=== PATIENT | male | born 1960 | race Caucasian/White ===

== ENCOUNTER 2016-05-24 18:01 | Emergency (ER) | payer SELFPAY ==
[2016-05-24 20:00] LABS: #Basophils 0.1 thou/uL (0.0-0.2); #Eosinphils 0.2 thou/uL (0.0-0.7); #Lymphocytes 4.6 thou/uL (1.20-3.40); #Neutrophils 4.9 thou/uL (1.40-6.50); %Basophils 0.9 % (0.0-1.0); %Eosinophils 2.3 % (0.0-10.0); %Monocytes 9.6 % (0.0-10.0); Hematocrit 46.5 % (42.0-52.0); Mean Platelet Volume 7.2 fL (7.4-10.4); Red Blood Cell (RBC) Count 5.02 mill/uL (4.70-6.10); White Blood Cell (WBC) Count 10.9 thou/uL (4.8-10.8)
[2016-05-24 20:16] LABS: ALT (SGPT) 16 U/L (0-55); AST (SGOT) 19 U/L (5-34); Alkaline Phosphatase 71 U/L (40-150); Anion Gap 13 mmol/L (10-20); BUN (Urea Nitrogen) 14 mg/dL (8.4-25.7); Bilirubin, Total 0.6 mg/dL (0.2-1.2); Calc. Creatinine Clearance 0 mL/min (70-130); Carbon Dioxide 26 mmol/L (22-29); Chloride 102 mmol/L (98-107); Estimated GFR-MDRD Greater than 90; Globulin 3.3 g/dL (2.4-3.5); Protein, Total 7.7 g/dL (6.0-8.3)
[2016-05-24] MEDS ORDERED: traMADol HCl 50 MG TAB ONE (20:34)
[2016-05-24] MEDS ORDERED: Acetaminophen 500 MG TAB ONE (20:34)
--- NOTE | 2016-05-24 21:32 | ERRECORD ---
[facility] EMERGENCY RECORD HPI EXTREMITY (20:22 WMEI) CHIEF COMPLAINT: Patient presents for evaluation of numbness, Patient presents for evaluation of numbness tingling both upper extr. from shoulder to finger tips. HISTORIAN: History provided by patient, denies injury present for 2 wks worse at night. MECHANISM OF INJURY: Unknown mechanism. LOCATION: Symptoms are localized, both upper extr. TIME COURSE: Gradual onset of symptoms, 2, weeks ago. ASSOCIATED WITH: No associated distal injury, No associated fever, Associated with numbness, constant, Associated with tingling, constant. EXACERBATED BY: Patient's condition exacerbated by nothing. RELIEVED BY: Patient's condition relieved by nothing. ROS (20:24 WMEI) CONSTITUTIONAL: Historian denies chills, denies fever. EYES: Historian denies eye pain, denies eye discharge. ENT: Historian denies otalgia, denies rhinorrhea, denies sore throat. CARDIOVASCULAR: Historian denies chest pain, no radiation. RESPIRATORY: Historian denies cough, denies shortness of breath. GI: Historian denies abdominal pain, denies nausea, denies vomiting. GENITOURINARY MALE: Historian denies dysuria, denies urinary urgency. MUSCULOSKELETAL: Historian denies injury, denies joint redness, reports joint stiffness, denies joint swelling. SKIN: Historian denies skin changes, denies skin lesions. NEUROLOGIC: Historian denies confusion, denies dizziness, denies mental status changes, denies paralysis, reports paresthesias. PSYCHIATRIC: Historian denies emotional lability, denies mood changes. PAST MEDICAL HISTORY MEDICAL HISTORY: No past medical history. (18:14 [facility]) Notes: hasn't been to doctor for 30 yrs. (20:26 WMEI) MALE SURGICAL HISTORY: Patient has no surgical history. (18:14 [facility]) PSYCHIATRIC HISTORY: No previous psychiatric history. (18:14 IG) SOCIAL HISTORY: Patient drinks every day, more than 5 drinks per day, Patient denies drug use, Patient currently uses tobacco, smokes cigarettes, Patient smokes 1.5 packs per day. (18:14 [facility]) KNOWN ALLERGIES No Known Drug Allergies &a-1R&a+25V*p+0X*g9352Y*c202B*c15G*c2P*p-0X&a-25V&a+1R Name: Tristan Bauer : 1960 M56 MedRec: [id number] AcctNum: [id number] Prepared: Aleena May 25, 2016 06:09 by Interface Page 1 of 3 pMD [facility] EMERGENCY RECORD CURRENT MEDICATIONS (18:15 [facility]) None VITAL SIGNS VITAL SIGNS: BP: 138/80, Pulse: 84, Resp: 20 (Non-Labored), Pain: 8, O2 sat: 97 on Room Air, Time: 05/24/2016 18:13. (18:13 [facility]) Temp: 97.9 (Oral), Time: 05/24/2016 18:21. (18:21 [facility]) BP: 125/87, Pulse: 82, Resp: 18, O2 sat: 98 on RA, Time: 05/24/2016 19:16. (19:16 [facility]) PHYSICAL EXAM (20:25 WMEI) CONSTITUTIONAL: Vital signs reviewed, Patient appears non toxic, Patient alert and oriented to person, place and time. HEAD: Head exam included findings of head atraumatic, normocephalic. EYES: Conjunctiva normal, Sclera normal. ENT: Ear exam normal, Nose exam normal, Pharynx exam normal. NECK: Neck exam included findings of normal range of motion, Trachea midline. RESPIRATORY CHEST: Breath sounds clear, Chest exam included findings of chest movement symmetrical. CARDIOVASCULAR: Cardiovascular exam included findings of heart rate regular rate and rhythm, Heart sounds normal. ABDOMEN MALE: Abdominal exam included findings of abdomen nontender, Liver normal, no distension. UPPER EXTREMITY: Upper extremity exam included findings of inspection normal, range of motion normal, Radial pulse normal, Ulnar pulse normal, capillary refill less than 2 seconds, distal motor intact, distal sensory intact, no cyanosis, no clubbing, no edema. LOWER EXTREMITY: Lower extremity exam included findings of inspection abnormal, Range of motion, Motor strength. NEURO: [place] coma scale 15, Neuro exam findings include patient oriented to person, place and time, Speech normal, Gait normal. SKIN: Skin exam included findings of skin warm, dry, and normal in color. LYMPHATIC: Lymphatic exam normal. PSYCHIATRIC: Psychiatric exam included findings of patient oriented to person place and time, Normal affect, Judgment normal, Insight normal. MEDICATION ADMINISTRATION SUMMARY Drug Name: traMADol, Dose Ordered: 50 mg, Route: Oral, Status: Given, Time: 20:35 05/24/2016, Drug Name: acetaminophen oral, Dose Ordered: 1000 mg, Route: Oral, Status: Given, Time: 20:35 05/24/2016, Detailed record available in Medication Service section. &a-1R&a+25V*p+0X*z7741X*c202B*c15G*c2P*p-0X&a-25V&a+1R Name: Tristan Bauer : 1960 M56 MedRec: [id number] AcctNum: [id number] Prepared: Aleena May 25, 2016 06:09 by Interface Page 2 of 3 pMD [facility] EMERGENCY RECORD PROBLEM LIST No recorded problems DIAGNOSIS (20:33 WMEI) FINAL: PRIMARY: parestesias. PRESCRIPTION (20:32 WMEI) traMADol: TABLET : 50 mg : ORAL : Quantity: 1 Unit: tab(s) Route: ORAL Schedule: 2 times a day (before meals) Dispense: 30 Unit: tab(s) May substitute. Refills: No Refills . NOTES: No refills. DISPOSITION PATIENT: Disposition Type: Discharge, Disposition: *Discharge Home. (20:33 WMEI) Patient left the department. (20:44 BMAD) Aragon: EROS=YAQUELIN Kwon, Marc ALLEN=YAQUELIN Boateng, Celi STATON=YAQUELIN Bey, Nick WMEI=DO Turner William &a-1R&a+25V*p+0X*[id number]*c202B*c15G*c2P*p-0X&a-25V&a+1R Name: Tristan Bauer : 1960 M56 MedRec: [id number] AcctNum: [id number] Prepared: Aleena May 25, 2016 06:09 by Interface Page 3 of 3 pMD MTDD
--- NOTE | 2016-05-24 21:35 | PICIS ---
[facility] EMERGENCY RECORD TRIAGE (18:12 JHIG) TRIAGE NOTES: Pt states that for the past couple of weeks he has had intermittent numbness and tingling in his hands. States "it is like when your feet fall asleep" Pt states the only time it is better is when he stands with his arms down by his side. (18:12 JHIG) PATIENT: NAME: Tristan Bauer, AGE: 56, GENDER: male, : Thu1960, TIME OF GREET: Sat May 24, 2016 18:01, PREFERRED LANGUAGE: Yoruba, ETHNICITY: Not or , ECODE BILLING MAP: [facility], SSN: [id number], Zip Code: [address], KG WEIGHT: 81.65, PHONE: , , , PERSON ID: [id number], PAYMENT: SJ[employer] Self Pay, PCP: none. (18:12 JHIG) COMPLAINT: hand numbness/tingling. (18:12 JHIG) ADMISSION: URGENCY: 3 Urgent, ADMISSION SOURCE: Home, TRANSPORT: [facility], BED: TRIAGE. (18:12 JHIG) PAIN: Patient complains of pain described as, numb, tingling, on a scale 0-10 patient rates pain as 8, Pain is intermittent. (18:14 JHIG) IMMUNIZATIONS: Flu vaccine not up to date, Tetanus not up to date, Pneumococcal vaccine not up to date. (18:14 J[facility]IG) SIRS SCORING: Heart Rate 55-109 (0), Temp range 96.8-101.1 (0), respiratory rate 12-24 (0), Mental Status altered: no (0), Total SIRS Score 0, Infection or Suspected Infection: No. (18:14 J[facility]IG) TRIAGE SCREENING: Patient denies suicidal ideation, Patient denies presence of domestic violence. (18:14 JHIG) PROVIDERS: TRIAGE NURSE: Nick Bey RN. (18:12 JHIG) VITAL SIGNS: BP 138/80, Pulse 84, Resp 20, (Non-Labored), Pain 8, O2 Sat 97, on Room Air, Time 05/24/2016 18:13. (18:13 JHIG) KNOWN ALLERGIES No Known Drug Allergies CURRENT MEDICATIONS (18:15 IG) None VITAL SIGNS VITAL SIGNS: BP: 138/80, Pulse: 84, Resp: 20 (Non-Labored), Pain: 8, O2 sat: 97 on Room Air, Time: 05/24/2016 18:13. (18:13 J[facility]) Temp: 97.9 (Oral), Time: 05/24/2016 18:21. (18:21 IG) BP: 125/87, Pulse: 82, Resp: 18, O2 sat: 98 on RA, Time: 05/24/2016 19:16. (19:16 [facility] NURSING ASSESSMENT: EXTREMITY UPPER (18:15 [facility]) CONSTITUTIONAL: Complex assessment performed, Patient arrives ambulatory, Gait steady, History obtained from patient, Patient appears, uncomfortable, Patient cooperative, Patient alert, Oriented to person, place and time, Skin warm, Skin dry, Skin normal in color, Mucous membranes pink, Mucous membranes moist, Patient is &a-1R&a+25V*p+0X*i9141M*c202B*c15G*c2P*p-0X&a-25V&a+1R Name: Tristan Bauer : 1960 M56 MedRec: [id number] AcctNum: [id number] Prepared: Aleena May 25, 2016 06:15 by Interface Page 1 of 6 pMD [facility] EMERGENCY RECORD well-groomed, Patient complains of hand numbness and tingling, Pt states that for the past couple of weeks he has had intermittent numbness and tingling in his hands. States "it is like when your feet fall asleep" Pt states the only time it is better is when he stands with his arms down by his side. PAIN: numb pain, tingling pain, to bilateral hands, on a scale 0-10 patient rates pain as 8. LEFT UPPER EXTREMITY: Left upper extremity assessment findings include capillary refill less than 2 seconds, Skin color normal to hand, Skin temperature to hand warm, Distal sensation intact, Muscle tone normal, muscle strength 5, non-pitting edema present. RIGHT UPPER EXTREMITY: Right upper extremity assessment findings include capillary refill less than 2 seconds, Skin color normal to hand, Skin temperature to hand warm, Distal sensation intact, Muscle tone normal, muscle strength 5, non-pitting edema present. SAFETY: Side rails up, Cart/Stretcher in lowest position, Family at bedside, Call light within reach, Hospital ID band on. NURSING ASSESSMENT: NEURO (19:46 BMAD) GCS: (6) Obeying command:, (5) Orientated:, (4) Spontaneous eye opening., Result: 15. NIHSS: CVA assessment findings: Level of consciousness: alert, keenly responsive (0), Questions: answers both questions correctly (0), Commands: performs both tasks correctly (0), Best gaze: normal (0), Visual: no visual loss (0), Facial palsy: normal symmetrical movement (0), Motor Left Arm: no drift, arm stays 90/45 degrees for full 10 seconds (0), Motor Right Arm: no drift, arm stays 90/45 degrees for full 10 seconds (0), Motor left leg: no drift, leg stays at 30 degrees for full five seconds (0), Motor right leg: no drift, leg stays at 30 degrees for full five seconds (0), Limb ataxia absent (0), Sensory: normal, no sensory loss (0), Best language: no aphasia; normal (0), Dysarthria: normal (0), Extinction and Inattention: normal (0), Total score 0. NURSING PROCEDURE: DISCHARGE NOTE (20:43 BMAD) DISCHARGE: Patient discharged to home, ambulating without assistance, family driving, accompanied by //partner, Summary of Care printed/ provided, Patient requested and was provided an electronic copy of Discharge Instructions, Transition record given to patient, Discharge instructions given to patient, Simple or moderate discharge teaching performed, by Marc JAMISON, Prescriptions given and instructions on side effects given, Name of prescription(s) given: Tramadol, Above person(s) verbalized understanding of discharge instructions and follow-up care, Patient discharged by, Dr. Turner. BELONGINGS: Belongings and valuables with patient at time of discharge include:, Belongings remain with patient, Valuables remain with patient. &a-1R&a+25V*p+0X*h2559T*c202B*c15G*c2P*p-0X&a-25V&a+1R Name: Tristan Bauer : 1960 M56 MedRec: [id number] AcctNum: [id number] Prepared: Aleena May 25, 2016 06:15 by Interface Page 2 of 6 pMD [facility] EMERGENCY RECORD NURSING PROCEDURE: NURSE NOTES (19:16 [facility]) NURSES NOTES: Notes: pt ambulated to rm 4 without incident. pt is cooperative, his visitor is very verbally aggressive, upset that she and the pt arrived the same time as 4 other people and 2 were emergent and were seen before the pt was. triage process explained to pt/visitor without violating any HIPPA violations ie disclosing names/dx with pt voicing "thank you" and the visitor saying, "I don't care. that doesn't matter and you need to get him taken care of." pt/visitor advised that the MD will be with them as soon as he can. VITAL SIGNS: BP: 125, / 87, Pulse: 82, Resp: 18, O2 sat: 98, on: RA. ORDER DETAILS Order Name: CBC with Differential, Status: Active, Time: 19:43 05/24/2016, User: [facility], - Ordered for: DO Turner William, - Entered by: DO Turner William - Sat May 24, 2016 19:43, - Quantity: 1, Order Name: Comprehensive Metabolic Panel, Status: Active, Time: 19:43 05/24/2016, User: KRISTEN, - Ordered for: DO Turner William, - Entered by: DO Turner William - Sat May 24, 2016 19:43, - Quantity: 1, Order Name: XR Chest Pa & Lat STANDARD, Status: Active, Time: 19:43 05/24/2016, User: KRISTEN, - Ordered for: DO Turner William, - Entered by: DO Turner William - Sat May 24, 2016 19:43, - Quantity: 1. MEDICATION ADMINISTRATION SUMMARY Drug Name: traMADol, Dose Ordered: 50 mg, Route: Oral, Status: Given, Time: 20:35 05/24/2016, Drug Name: acetaminophen oral, Dose Ordered: 1000 mg, Route: Oral, Status: Given, Time: 20:35 05/24/2016, Detailed record available in Medication Service section. MEDICATION SERVICE (20:35 WMEI) acetaminophen oral: Order: acetaminophen oral (acetaminophen) - Dose: 1000 mg : Oral Schedule: Now Ordered by: Kory Turner DO Entered by: Kory Turner DO [facility] May 24, 2016 20:32 , Acknowledged by: Marc Kwon RN [facility] May 24, 2016 20:33 Documented as given by: Marc Kwon RN [facility] May 24, 2016 20:35 Patient, Medication, Dose, Route and Time verified prior to administration. Amount given: 1000mg, Site: Medication administered P.O., Correct &a-1R&a+25V*p+0X*a6757X*c202B*c15G*c2P*p-0X&a-25V&a+1R Name: Tristan Bauer : 1960 M56 MedRec: [id number] AcctNum: [id number] Prepared: Aleena May 25, 2016 06:15 by Interface Page 3 of 6 pMD [facility] EMERGENCY RECORD patient, time, route, dose and medication confirmed prior to administration, Patient advised of actions and side-effects prior to administration, Allergies confirmed and medications reviewed prior to administration. traMADol: Order: traMADol (tramadol HCl) - Dose: 50 mg : Oral Schedule: Now Ordered by: Kory Turner DO Entered by: Kory Turner DO [facility] May 24, 2016 20:32 , Acknowledged by: Marc Kwon RN [facility] May 24, 2016 20:33 Documented as given by: Marc Kwon RN [facility] May 24, 2016 20:35 Patient, Medication, Dose, Route and Time verified prior to administration. Amount given: 50mg, Site: Medication administered P.O., Correct patient, time, route, dose and medication confirmed prior to administration, Patient advised of actions and side-effects prior to administration, Allergies confirmed and medications reviewed prior to administration, Patient in position of comfort, Side rails up, Cart in lowest position, Family at bedside. HPI EXTREMITY (20:22 WMEI) CHIEF COMPLAINT: Patient presents for evaluation of numbness, Patient presents for evaluation of numbness tingling both upper extr. from shoulder to finger tips. HISTORIAN: History provided by patient, denies injury present for 2 wks worse at night. MECHANISM OF INJURY: Unknown mechanism. LOCATION: Symptoms are localized, both upper extr. TIME COURSE: Gradual onset of symptoms, 2, weeks ago. ASSOCIATED WITH: No associated distal injury, No associated fever, Associated with numbness, constant, Associated with tingling, constant. EXACERBATED BY: Patient's condition exacerbated by nothing. RELIEVED BY: Patient's condition relieved by nothing. ROS (20:24 WMEI) CONSTITUTIONAL: Historian denies chills, denies fever. EYES: Historian denies eye pain, denies eye discharge. ENT: Historian denies otalgia, denies rhinorrhea, denies sore throat. CARDIOVASCULAR: Historian denies chest pain, no radiation. RESPIRATORY: Historian denies cough, denies shortness of breath. GI: Historian denies abdominal pain, denies nausea, denies vomiting. GENITOURINARY MALE: Historian denies dysuria, denies urinary urgency. MUSCULOSKELETAL: Historian denies injury, denies joint redness, reports joint stiffness, denies joint swelling. SKIN: Historian denies skin changes, denies skin lesions. &a-1R&a+25V*p+0X*l5682J*c202B*c15G*c2P*p-0X&a-25V&a+1R Name: Tristan Bauer : 1960 M56 MedRec: [id number] AcctNum: [id number] Prepared: Aleena May 25, 2016 06:15 by Interface Page 4 of 6 pMD [facility] EMERGENCY RECORD NEUROLOGIC: Historian denies confusion, denies dizziness, denies mental status changes, denies paralysis, reports paresthesias. PSYCHIATRIC: Historian denies emotional lability, denies mood changes. PAST MEDICAL HISTORY MEDICAL HISTORY: No past medical history. (18:14 JHIG) Notes: hasn't been to doctor for 30 yrs. (20:26 WMEI) MALE SURGICAL HISTORY: Patient has no surgical history. (18:14 JHIG) PSYCHIATRIC HISTORY: No previous psychiatric history. (18:14 JHIG) SOCIAL HISTORY: Patient drinks every day, more than 5 drinks per day, Patient denies drug use, Patient currently uses tobacco, smokes cigarettes, Patient smokes 1.5 packs per day. (18:14 JHIG) PHYSICAL EXAM (20:25 WMEI) CONSTITUTIONAL: Vital signs reviewed, Patient appears non toxic, Patient alert and oriented to person, place and time. HEAD: Head exam included findings of head atraumatic, normocephalic. EYES: Conjunctiva normal, Sclera normal. ENT: Ear exam normal, Nose exam normal, Pharynx exam normal. NECK: Neck exam included findings of normal range of motion, Trachea midline. RESPIRATORY CHEST: Breath sounds clear, Chest exam included findings of chest movement symmetrical. CARDIOVASCULAR: Cardiovascular exam included findings of heart rate regular rate and rhythm, Heart sounds normal. ABDOMEN MALE: Abdominal exam included findings of abdomen nontender, Liver normal, no distension. UPPER EXTREMITY: Upper extremity exam included findings of inspection normal, range of motion normal, Radial pulse normal, Ulnar pulse normal, capillary refill less than 2 seconds, distal motor intact, distal sensory intact, no cyanosis, no clubbing, no edema. LOWER EXTREMITY: Lower extremity exam included findings of inspection abnormal, Range of motion, Motor strength. NEURO: [place] coma scale 15, Neuro exam findings include patient oriented to person, place and time, Speech normal, Gait normal. SKIN: Skin exam included findings of skin warm, dry, and normal in color. LYMPHATIC: Lymphatic exam normal. PSYCHIATRIC: Psychiatric exam included findings of patient oriented to person place and time, Normal affect, Judgment normal, Insight normal. EVENTS &a-1R&a+25V*p+0X*x0130M*c202B*c15G*c2P*p-0X&a-25V&a+1R Name: Tristan Bauer : 1960 M56 MedRec: [id number] AcctNum: [id number] Prepared: Aleena May 25, 2016 06:15 by Interface Page 5 of 6 pMD [facility] EMERGENCY RECORD TRANSFER: Triage to Emergency Triage. ([facility] May 24, 2016 18:12 [facility]) Emergency Triage to Emergency Room -05. (18:13 [facility]) Emergency Emergency Room -05 to -04. (19:15 [facility]) Removed from Emergency Emergency Room -04. (20:44 BMAD) PROBLEM LIST No recorded problems DIAGNOSIS (20:33 WMEI) FINAL: PRIMARY: parestesias. DISPOSITION PATIENT: Disposition Type: Discharge, Disposition: *Discharge Home. (20:33 WMEI) Patient left the department. (20:44 BMAD) INSTRUCTION (20:34 WMEI) DISCHARGE: PERIPHERAL NEUROPATHY. SPECIAL: Follow-up with your PCP. PRESCRIPTION (20:32 WMEI) traMADol: TABLET : 50 mg : ORAL : Quantity: 1 Unit: tab(s) Route: ORAL Schedule: 2 times a day (before meals) Dispense: 30 Unit: tab(s) May substitute. Refills: No Refills . NOTES: No refills. ADMIN (Aleena May 25, 2016 06:05 WMEI) DIGITAL SIGNATURE: DO Turner William. Aragon: BMELKE=YAQUELIN Kwon, Marc CHOB=YAQUELIN Boateng, Celi JHONATHAN=YAQUELIN Bey, Nick WMEI=DO Turner William &a-1R&a+25V*p+0X*o2567L*c202B*c15G*c2P*p-0X&a-25V&a+1R Name: Tristan Bauer : 1960 M56 MedRec: [id number] AcctNum: [id number] Prepared: Aleena May 25, 2016 06:15 by Interface Page 6 of 6 pMD MTDD
--- NOTE | 2016-05-24 23:08 | RAD ---
CHEST 2 VIEWS: Date: 05/24/16 FINDINGS: The heart is normal in size and the lungs are clear. There is no sign of pneumonia or pleural effusi on. No vascular congestion seen. The trachea is midline. The bony structures are unremarkable. IMPRESSION: No acute findings. POS: HOME
== END 2016-05-24 20:32 | disposition home or self-care (01) ==
LOC: BURERS 18:01
DX: R20.2 Paresthesia of skin (principal); F17.210 Nicotine dependence, cigarettes, uncomplicated
CPT/HCPCS: 36415; 71020; 80053; 85025; 99284

== ENCOUNTER 2017-09-21 14:28 | Outpatient (CLI) | payer OTHER ==
--- NOTE | 2017-09-22 07:28 | RAD ---
RIGHT HAND TWO VIEWS: 09/21/2017 TECHNIQUE: AP and lateral views were provided. FINDINGS: No acute fracture is seen. An old injury to the DIP joint of the index finger is suggested. The su nts are otherwise unremarkable in appearance. No bony erosions are seen. The carpals are not fully evaluated without an oblique view. There may have been old trauma to the distal scaphoid, but there is certainly no sign of avascular necrosis. Incidentally noted was a tiny metallic foreign body in t he superficial soft tissues on the ventral aspect of the distal forearm. The PIP joint of the fifth finger is abnormal, and there is suspicion of old trauma here as well. IMPRESSION: No acute findings. POS: HOME
--- NOTE | 2017-09-22 07:28 | RAD ---
LEFT ELBOW TWO VIEWS: 09/21/2017 COMPARISON: Views of the right elbow. FINDINGS: No fracture or joint effusion is seen. There is a little ossification at the origin of the tendons f rom the medial epicondyle, but the findings are minimal compared to the other side. IMPRESSION: No acute finding. POS: HOME
--- NOTE | 2017-09-22 07:28 | RAD ---
RIGHT ELBOW TWO VIEWS: 09/21/2017 FINDINGS: No fracture or joint effusion is seen. There is ossification at the insertion of the tendons at both the medial and lateral aspects of the humeral condyles. Otherwise, the joint is unremarkable, excep t for some minor bony spurring involving the coronoid process. IMPRESSION: Mild chronic findings as listed above. POS: HOME
--- NOTE | 2017-09-22 07:29 | RAD ---
LEFT HAND TWO VIEWS: 09/21/2017 COMPARISON: Views of the right hand. FINDINGS: No fracture, dislocation, or joint abnormality is seen. There may have been old trauma at the base o f the thumb, laterally. The carpals are not fully evaluated but grossly appear normal. There are no bony erosions. IMPRESSION: No acute finding. POS: HOME
--- NOTE | 2017-09-22 07:30 | RAD ---
RIGHT WRIST TWO VIEWS: 09/21/2017 FINDINGS: AP and lateral views show no bony fracture. The intercarpal joints seem unremarkable, though are not fully evaluated without the oblique view. There may have been old trauma to the distal scaphoid. A metallic foreign body is seen on the ventral aspect of the distal forearm, in the superficial soft t issues. IMPRESSION: No acute finding. POS: HOME
--- NOTE | 2017-09-22 07:30 | RAD ---
LEFT WRIST TWO VIEWS: 09/21/2017 COMPARISON: Views of the opposite wrist. FINDINGS: No carpal abnormalities are appreciated, though they are not fully evaluated. The intercarpal joints seem normal. Old trauma is suggested at the base of the proximal phalanx of the thumb. IMPRESSION: No acute finding. POS: HOME
== END 2017-09-21 14:29 | disposition home or self-care (01) ==
LOC: BURRAD 14:28
PROVIDERS: ATTEND Family Medicine
DX: M25.50 Pain in unspecified joint (principal); M77.8 Other enthesopathies, not elsewhere classified

== ENCOUNTER 2021-11-11 11:36 | Emergency (ER) | payer OTHER ==
[2021-11-11] MEDS ORDERED: Ondansetron PF 4 MG/2 ML Vial ONE (12:11)
[2021-11-11] MEDS ORDERED: Morphine 4 MG/ML VIAL ONE (12:11)
[2021-11-11 12:12] LABS: #Basophils 0.2 thou/uL (0.0-0.2); #Eosinphils 0.5 thou/uL (0.0-0.7); #Lymphocytes 3.7 thou/uL (1.20-3.40); #Monocytes 0.8 thou/uL (0.11-0.59); #Neutrophils 7.6 thou/uL (1.40-6.50); %Basophils 1.2 % (0.0-1.0); %Eosinophils 3.7 % (0.0-10.0); %Lymphocytes 29.2 % (21.0-51.0); %Monocytes 6.5 % (0.0-10.0); %Neutrophils 59.4 % (42.0-75.0); Hemoglobin 11.5 g/dL (14.0-18.0); Mean Corpuscular HGB CONC 36.1 g/dL (32.0-36.0); Mean Corpuscular Hemoglobin 33.2 pg (27.0-31.0); Mean Corpuscular Volume 91.9 fL (78.0-98.0); Mean Platelet Volume 6.1 fL (7.4-10.4); Platelet Count 180 thou/uL (130-400); Red Blood Cell (RBC) Count 3.47 mill/uL (4.70-6.10); White Blood Cell (WBC) Count 12.8 thou/uL (4.8-10.8)
[2021-11-11 12:27] LABS: ALT (SGPT) 18 U/L (8-55); AST (SGOT) 23 U/L (5-34); Albumin 4.3 g/dL (3.5-5.0); Alkaline Phosphatase 478 U/L (40-110); Anion Gap 16 mmol/L (10-20); BUN (Urea Nitrogen) 20 mg/dL (8.4-25.7); Calc. Creatinine Clearance 0 mL/min (70-130); Calcium 9.7 mg/dL (7.8-10.44); Carbon Dioxide 25 mmol/L (22-29); Chloride 100 mmol/L (98-107); Estimated GFR 102; Globulin 3.1 g/dL (2.4-3.5); Glucose 129 mg/dL (70-105); Potassium 4.2 mmol/L (3.5-5.1); Protein, Total 7.4 g/dL (6.0-8.3); Sodium 137 mmol/L (136-145)
[2021-11-11] MEDS ORDERED: Aspirin Chewable 81 MG TAB ONE (13:02)
[2021-11-11] MEDS ORDERED: HYDROcodone/Acetaminophen 5/325 mg Tablet ONE (14:14)
== END 2021-11-11 14:15 | disposition home or self-care (01) ==
LOC: BURERS 11:36
DX: S32.019A Unspecified fracture of first lumbar vertebra, initial encounter for closed fracture (principal); S22.42XA Multiple fractures of ribs, left side, initial encounter for closed fracture; F17.210 Nicotine dependence, cigarettes, uncomplicated; M50.21 Other cervical disc displacement, high cervical region; W18.30XA Fall on same level, unspecified, initial encounter
CPT/HCPCS: 72125; 72131; 80053; 82553; 84484; 85025; 86140; 93005; 96361; 96374; 96375; J2270; J2405

== ENCOUNTER 2021-11-24 00:26 | Emergency (ER) | payer OTHER ==
[2021-11-24] MEDS ORDERED: Magnesium Citrate 300 ML BOT ONE (01:18)
[2021-11-24] MEDS ORDERED: Bisacodyl 10 MG SUPP ONE (01:18)
== END 2021-11-24 01:26 | disposition home or self-care (01) ==
LOC: BURERS 00:26
DX: K59.00 Constipation, unspecified (principal); M54.50 Low back pain, unspecified; F17.210 Nicotine dependence, cigarettes, uncomplicated; Z79.899 Other long term (current) drug therapy
CPT/HCPCS: 99283